=== PATIENT | male | born 1940 | race Caucasian/White ===

== ENCOUNTER → 2017-03-22 | Outpatient (CLI) | payer MEDICARE, BC ==
[~2017-03-22] MED LIST: ASPIR-LOW81 MG PO; FERROUS SU325 MG/TAB PO; FISH OIL CONC1000 MG PO; FLOMAX 0.40.4 MG/CAP PO; FOLIC ACID PO; LISINOPRIL PO; MVI PO; NITROQUICK0.4 MG SL; PRILOSEC 20MG20 MG PO; TOPROL XL 25MG25 MG PO; TOPROL XL25 MG PO; VITAMIN C500 MG PO; VYTORIN 10 MG-41 TAB PO
== END ==
LOC: COL.RAD 03-15 08:00
DX: M25.571 Pain in right ankle and joints of right foot (principal); Z98.1 Arthrodesis status
CPT/HCPCS: J3301; Q9967

== ENCOUNTER → 2022-05-29 | Outpatient (CLI) | payer MEDICARE, BC ==
[2022-05-29 17:24] LABS: SYNOVIAL FL. MONONUCLEAR 48.7 % (0-75); SYNOVIAL FLUID RBC 2197000 /mm3 (0-0); SYNOVIAL FLUID WBC 1895 /mm3 (200-600)
[2022-05-29 17:25] LABS: SYNOVIAL FLUID APPEARANCE BLOODY; SYNOVIAL FLUID COLOR RED
== END ==
LOC: COL.LAB 16:48
PROVIDERS: Orthopaedic Surgery
DX: Z11.9 Encounter for screening for infectious and parasitic diseases, unspecified (principal); M25.561 Pain in right knee